=== PATIENT | female | born 1980 | race Two or more races ===

== ENCOUNTER 2018-08-04 09:45 | Emergency (ER) | payer OTHER ==
[~2018-08-04] VITALS: Ht 157.5 cm; Wt 88.0 kg
[2018-08-04 09:49] VITALS: BP 137/82
[2018-08-04] MEDS ORDERED: ACETAMINOPHEN ES 500 MG TABLET ONE (10:06)
[2018-08-04] MEDS ORDERED: ACETAMINOPHEN ES 500 MG TABLET PO ONE (10:30)
--- NOTE | 2018-08-04 11:21 | NUR ---
Patient medically cleared for booking. Patient discharged to [facility] custody in stable condition. Written and verbal after care instructions given. Patient verbalizes understanding of instruction.
== END 2018-08-04 11:22 ==
LOC: ER 09:48
DX: R51 Headache (principal)
CPT/HCPCS: 70450-TC; 84703-TC